=== PATIENT | female | born 1955 | race African-American/Black ===

== ENCOUNTER 2018-09-29 07:48 | Emergency (ER) | payer MEDICAID ==
[~2018-09-29] VITALS: Ht 162.6 cm; Wt 98.0 kg
[~2018-09-29 07:48] MED LIST: AMOXIL400 MG/52 PO; CEPHALEXIN250 MG/51 PO; CEPHALEXIN500 MG PO; CIPRO500 MG OR; COLCHICINE0.6 M2 PO; INDOCIN50 MG/CAP PO; KEFLEX500 MG PO; MEDDOSEPAK PO; NAPROSYN500 MG OR; NAPROSYN500 MG PO; NORCO1 TA1 PO; ONDANSETRON4 MG PO; PENICILLN VK500 M1 OR; PREDNISONE20 MG OR; TORADOL PO; ULTRAM50 M1 OR; ULTRAM50 M1 PO; ULTRAM50 MG OR; ULTRAM50 MG PO; ZOFRAN4 MG/TAB PO
[2018-09-29 07:53] VITALS: BP 150/94
[2018-09-29] MEDS ORDERED: MEDDOSEPAK PO (09:02)
[2018-09-29] MEDS ORDERED: TORADOL PO (09:02)
== END 2018-09-29 09:18 | disposition home or self-care (01) ==
LOC: ED 07:48
DX: S66.911A Strain of unspecified muscle, fascia and tendon at wrist and hand level, right hand, initial encounter (principal); I10 Essential (primary) hypertension; E11.9 Type 2 diabetes mellitus without complications; G45.9 Transient cerebral ischemic attack, unspecified; X58.XXXA Exposure to other specified factors, initial encounter; M25.531 Pain in right wrist

== ENCOUNTER 2018-11-13 18:17 | Observation (INO) | payer MEDICAID ==
[~2018-11-13] VITALS: Ht 170.2 cm; Wt 99.5 kg
--- NOTE | 2018-11-13 18:29 | NUR ---
PT DIRECTLY TO TX ROOM. PT STATES HAVING LEFT ANTERIOR NON RADIATING C/P THAT BEGAN AT 1400. PAIN AT 10/10- PT APPERAS COMFORTABLE ON STRETCHER, PT IS AOX4. DENIES ANY CON, N/V OR WEAKNESS.
--- NOTE | 2018-11-13 18:51 | NUR ---
REPORT GIVEN TO JAE SALES
[2018-11-13 18:53] LABS: HEMATOCRIT 38.7 % (37.0-47.0); HEMOGLOBIN 12.1 g/dl (12.0-16.0); IMMATURE GRANULOCYTES 0.3 % (0.0-5.0); MEAN CELL VOLUME 90.8 fL CALC (80.0-100.0); MEAN CORPUSCULAR HGB 28.4 pG CALC (26.0-32.0); MEAN CORPUSCULAR HGB CONC 31.3 g/L CALC (32.0-36.0); NEUT# 3.39 thou/uL (2.00-7.15); RED BLOOD COUNT 4.26 mill/uL (4.20-5.60); RED CELL DISTRI WIDTH 15.9 % (11.5-15.5)
--- NOTE | 2018-11-13 18:56 | NUR ---
ERP AT BEDSIDE.
[2018-11-13 19:21] LABS: ALBUMIN 4.2 g/dL (3.2-5.0); ALKALINE PHOSPHATASE 187 u/l (38-126); ANION GAP 15 (6-22 (CALC)); BILIRUBIN, TOTAL 0.5 mg/dL (0.0-1.4); BUN 35 mg/dL (8-23); BUN/CREATININE RATIO 17 (12-20 (CALC)); CARBON DIOXIDE 20 mmol/l (22-30); CHLORIDE 111 mmol/l (95-108); GFR 25 ML/MIN (>=60 (CALC)); GFR FOR AFR.AMER. 31 ML/MIN (>=60 (CALC)); POTASSIUM 4.4 mmol/l (3.5-5.1); SGOT/AST 24 u/l (9-36); SODIUM 141 mmol/l (137-146)
--- NOTE | 2018-11-13 21:17 | NUR ---
DR WESTBROOK AT BEDSIDE.
[2018-11-13] MEDS ORDERED: BLOOD PRESSURE MED (21:34)
--- NOTE | 2018-11-13 22:38 | NUR ---
REPORT TO [facility].
--- NOTE | 2018-11-13 22:45 | NUR ---
PT TO ICU WITH RN ON TELE. PT COND STABLE.
[2018-11-13 23:12] VITALS: BP 123/69
--- NOTE | 2018-11-14 00:45 | NUR ---
Patient admitted to unit as med-tele for chest pain. Cardiac enzymes are negative. Patient is alert and oriented. Breath sounds clear. Abdomen soft with active bowel sounds in al 4 quadrants. No S&S of pain. She is still having shap pain. It is not radiating down the arm and down the jaw. Will continue to monitor.
[2018-11-14 05:00] VITALS: BP 86/48
--- NOTE | 2018-11-14 05:23 | NUR ---
Patient resting in bed. No complaints of pain. V/S wnl. Breath sounds clear. Abdomen soft with active bowel sounds. No change in previous assessment. WIll continue to monitor patient progress.
[2018-11-14 06:32] VITALS: BP 132/71
--- NOTE | 2018-11-14 06:55 | NUR ---
RECVD REPORT AT START OF SHIFT.
[2018-11-14 08:00] VITALS: BP 128/70
--- NOTE | 2018-11-14 08:00 | NUR ---
PT C/O SHARP INTERMIT PAIN TO UPPER LEFT SIDE OF CHEST, WORSENS WITH MOVEMENT x1 DAY. DENIES TRAUMA. DENIES SOB. DENIES N/V/D. NEURO ABNORMALITIES. RODRIGUEZ. ABD SOFT/NONTENDER, ACTIVE BS. STRONG PULSES x4. NO EDEMA. BREATHING EVEN/UNLABORED, CLEAR LS.
--- NOTE | 2018-11-14 08:44 | NUR ---
DEMONSTRATED FOR PT HOW TO MANIPULATE HER BED, AFTER RESPONDING TO CALLBELL.
--- NOTE | 2018-11-14 09:43 | NUR ---
DR URRUTIA @BEDSIDE DISCUSSING PTS KIDNEYS.
--- NOTE | 2018-11-14 10:29 | NUR ---
AUX ASKED TO COME TO TRANSPORT PT TO U/S.
--- NOTE | 2018-11-14 10:41 | NUR ---
PT OFF UNIT TO U/S BY WC WITH AUXILLARY IN STABLE CONDITION.
--- NOTE | 2018-11-14 10:56 | NUR ---
PT RETURNED TO ICU 4 BY WC WITH AUX.
[2018-11-14 11:00] VITALS: BP 125/71
--- NOTE | 2018-11-14 11:31 | NUR ---
PT EDUCATED ON DC INSTRUCTIONS, INCLUDING WHEN TO RETURN TO ED & F/UP CARE. PT CHOOSE TO STAY FOR LUNCH. REQUEST WE CALL A CAB FOR HER WHEN SHE IS DONE. PT DID NOT NEED A WORK NOTE BC SHE DOES NOT WORK.
--- NOTE | 2018-11-14 11:47 | NUR ---
PT OUT THE DOOR IN , WITH AUX, IN STABLE CONDITION, AFTER FINISHING 100% OF LUNCH. REGISTRATION CALLED FOR A CAB FOR PT, PER HER REQUEST.
[2018-11-15] MEDS ORDERED: LOSARTAN POT50 MG PO (15:29)
== END 2018-11-14 11:47 | disposition home or self-care (01) ==
LOC: ED 18:17 → ED-I 20:26 → ED 21:21 → ICU 21:22
PROVIDERS: Emergency Medicine; ADMIT Internal Medicine; ATTEND Internal Medicine
DX: R07.89 Other chest pain (principal); E11.22 Type 2 diabetes mellitus with diabetic chronic kidney disease; I12.9 Hypertensive chronic kidney disease with stage 1 through stage 4 chronic kidney disease, or unspecified chronic kidney disease; N18.4 Chronic kidney disease, stage 4 (severe); N17.9 Acute kidney failure, unspecified; N20.0 Calculus of kidney; E87.2 Acidosis; E66.9 Obesity, unspecified; Z68.34 Body mass index [BMI] 34.0-34.9, adult; Z86.73 Personal history of transient ischemic attack (TIA), and cerebral infarction without residual deficits; Z90.5 Acquired absence of kidney

== ENCOUNTER 2018-11-15 13:12 | Emergency (ER) | payer MEDICAID ==
[~2018-11-15] VITALS: Ht 170.2 cm; Wt 100.0 kg
[~2018-11-15 13:12] MED LIST changes: +BLOOD PRESSURE MED
[2018-11-15 14:21] LABS: HEMOGLOBIN 12.2 g/dl (12.0-16.0); IMMATURE GRANULOCYTES 0.1 % (0.0-5.0); MEAN CELL VOLUME 90.7 fL CALC (80.0-100.0); MEAN CORPUSCULAR HGB 28.4 pG CALC (26.0-32.0); MEAN CORPUSCULAR HGB CONC 31.3 g/L CALC (32.0-36.0); NEUT# 3.8 thou/uL (2.00-7.15); RED BLOOD COUNT 4.3 mill/uL (4.20-5.60); RED CELL DISTRI WIDTH 15.9 % (11.5-15.5)
[2018-11-15 14:41] LABS: ANION GAP 15 (6-22 (CALC)); BUN 41 mg/dL (8-23); BUN/CREATININE RATIO 24 (12-20 (CALC)); CARBON DIOXIDE 18 mmol/l (22-30); CHLORIDE 113 mmol/l (95-108); CREATININE 1.7 mg/dL (0.5-1.0); GFR 31 ML/MIN (>=60 (CALC)); GFR FOR AFR.AMER. 37 ML/MIN (>=60 (CALC)); POTASSIUM 4.4 mmol/l (3.5-5.1); SODIUM 143 mmol/l (137-146)
[2018-11-15] MEDS ORDERED: LOSARTAN POT50 MG PO (15:29)
[2018-11-15 18:30] VITALS: BP 139/68
== END 2018-11-15 18:40 | disposition short-term general hospital (02) ==
LOC: ED 13:12
PROVIDERS: Family Medicine
DX: I20.0 Unstable angina (principal); I10 Essential (primary) hypertension
CPT/HCPCS: J1644

== ENCOUNTER 2018-12-27 22:09 | Emergency (ER) | payer MEDICAID ==
[~2018-12-27] VITALS: Ht 170.2 cm; Wt 97.7 kg
[~2018-12-27 22:09] MED LIST changes: +LOSARTAN POT50 MG PO
[2018-12-27 22:59] LABS: HEMATOCRIT 35.8 % (37.0-47.0); HEMOGLOBIN 11.1 g/dl (12.0-16.0); IMMATURE GRANULOCYTES 0.3 % (0.0-5.0); MEAN CELL VOLUME 89.5 fL CALC (80.0-100.0); MEAN CORPUSCULAR HGB 27.8 pG CALC (26.0-32.0); NEUT# 8.31 thou/uL (2.00-7.15); RED CELL DISTRI WIDTH 14.3 % (11.5-15.5)
[2018-12-27 23:20] LABS: ALBUMIN 4.5 g/dL (3.2-5.0); ALKALINE PHOSPHATASE 209 u/l (38-126); BILIRUBIN, TOTAL 0.5 mg/dL (0.0-1.4); BUN 18 mg/dL (8-23); BUN/CREATININE RATIO 10 (12-20 (CALC)); CHLORIDE 109 mmol/l (95-108); CREATININE 1.8 mg/dL (0.5-1.0); GFR 29 ML/MIN (>=60 (CALC)); GFR FOR AFR.AMER. 35 ML/MIN (>=60 (CALC)); POTASSIUM 4.3 mmol/l (3.5-5.1); SGOT/AST 18 u/l (9-36); SODIUM 140 mmol/l (137-146); TOTAL PROTEIN 9.2 g/dL (6.3-8.2)
[2018-12-27 23:23] LABS: ANION GAP 13 (6-22 (CALC)); CARBON DIOXIDE 22 mmol/l (22-30)
[2018-12-27 23:28] LABS: MYOGLOBIN 27 ng/mL (0 - 62)
[2018-12-27 23:51] LABS: TSH, 3RD GENERATION 2.13 uIU/mL (0.47 - 4.68)
[2018-12-28 00:25] LABS: URINE BILIRUBIN - DIPSTICK NEGATIVE (NEGATIVE); URINE BLOOD DIPSTICK LARGE (NEGATIVE); URINE COLOR YELLOW; URINE GLUCOSE - DIPSTICK NEGATIVE (NEGATIVE); URINE KETONE NEGATIVE (NEGATIVE); URINE LEUK ESTERASE LARGE (NEGATIVE); URINE NITRITE - DIPSTICK NEGATIVE (Negative); URINE PH 6.5 (4.5-8.0); URINE PROTEIN - DIPSTICK 100 mg/dL (NEG-TRACE); URINE UROBILINOGEN - DIPSTICK 0.2 E.U./dL (0.2)
[2018-12-28 00:51] LABS: URINE RBC 25-50 RBC/hpf (0-5); URINE SQUAMOUS EPITHELIAL CELL FEW EPI/hpf (0-FEW); URINE TRICHOMONAS RARE hpf; URINE WBC 50-100 WBC/hpf (0-5)
[2018-12-28] MEDS ORDERED: TRAMADOL HCL50 MG PO (01:06)
[2018-12-28 01:35] VITALS: BP 104/62
== END 2018-12-28 01:35 | disposition home or self-care (01) ==
LOC: ED 22:09
PROVIDERS: Family Medicine
DX: R53.1 Weakness (principal); M25.571 Pain in right ankle and joints of right foot

== ENCOUNTER 2019-09-02 | Emergency (ER) | payer MEDICAID ==
[~2019-09-02] MED LIST changes: +TRAMADOL HCL50 MG PO
== END 2019-09-02 16:59 | disposition home or self-care (01) ==
DX: H40.9 Unspecified glaucoma (principal); H43.393 Other vitreous opacities, bilateral; E11.9 Type 2 diabetes mellitus without complications; E03.9 Hypothyroidism, unspecified; I10 Essential (primary) hypertension

== ENCOUNTER 2021-03-03 03:52 | Observation (INO) | payer MEDICAID ==
[~2021-03-03] VITALS: Ht 162.6 cm; Wt 82.2 kg
--- NOTE | 2021-03-03 04:40 | NUR ---
IV ACCESS OBTAINED AND LAB WORK DRAWN INCLUDING FIRST SET OF BC's PT MEDICATED FOR PAIN AND NAUSEA ORDERED, RADIOLOGY AT BEDSIDE FOR CXR AND CURRENTLY TO GO TO RADIOLOGY FOR CT SCAN.
[2021-03-03 05:02] LABS: HEMATOCRIT 34.1 % (37.0-47.0); HEMOGLOBIN 10.9 g/dl (12.0-16.0); IMMATURE GRANULOCYTES 0.2 % (0.0-5.0); MEAN CELL VOLUME 86.3 fL CALC (80.0-100.0); MEAN CORPUSCULAR HGB 27.6 pG CALC (26.0-32.0); RED BLOOD COUNT 3.95 mill/uL (4.20-5.60); RED CELL DISTRI WIDTH 16.1 % (11.5-15.5)
[2021-03-03 05:13] LABS: ALKALINE PHOSPHATASE 120 u/l (38-126); AMYLASE 96 u/l (30-110); BUN 14 mg/dL (8-23); BUN/CREATININE RATIO 11 (12-20 (CALC)); CHLORIDE 107 mmol/l (95-108); CREATININE 1.2 mg/dL (0.5-1.0); ETHYL ALCOHOL 0 mg/dl (0-30); GFR 45 ML/MIN (>=60 (CALC)); GFR FOR AFR.AMER. 55 ML/MIN (>=60 (CALC)); LIPASE 170 u/l (23-300); SGOT/AST 17 u/l (9-36); SODIUM 143 mmol/l (137-146)
[2021-03-03 05:14] LABS: ALBUMIN 3.1 g/dL (3.2-5.0); ANION GAP 11 (6-22 (CALC)); BILIRUBIN, TOTAL 0.1 mg/dL (0.0-1.4); CARBON DIOXIDE 28 mmol/l (22-30); POTASSIUM 2.5 mmol/l (3.5-5.1); TOTAL PROTEIN 7.2 g/dL (6.3-8.2)
[2021-03-03 05:18] LABS: ACT PARTIAL THROMBO TIME 25.9 SECONDS (20.0-32.5); INTERNATIONAL NORMALIZED RATIO 1.1 RATIO (0.7-1.3); PROTHROMBIN TIME 11.6 SECONDS (9.0-12.5)
[2021-03-03 06:00] LABS: URINE BILIRUBIN - DIPSTICK NEGATIVE (NEGATIVE); URINE BLOOD DIPSTICK MODERATE (NEGATIVE); URINE COLOR YELLOW; URINE GLUCOSE - DIPSTICK NEGATIVE (NEGATIVE); URINE PH 6.5 (4.5-8.0); URINE PROTEIN - DIPSTICK TRACE mg/dL (NEG-TRACE); URINE SPECIFIC GRAVITY 1.015; URINE UROBILINOGEN - DIPSTICK 0.2 E.U./dL (0.2)
[2021-03-03 06:06] LABS: URINE LEUK ESTERASE LARGE (NEGATIVE); URINE NITRITE - DIPSTICK NEGATIVE (Negative)
[2021-03-03 06:07] LABS: URINE KETONE NEGATIVE (NEGATIVE)
[2021-03-03 06:09] LABS: URINE EPITHELIAL CELLS MODERATE EPI/hpf (0-FEW); URINE WBC 20-50 WBC/hpf (0-5)
[2021-03-03 06:10] LABS: URINE BACTERIA MODERATE hpf
--- NOTE | 2021-03-03 06:56 | NUR ---
Recieved for care,stable. call castellanos in reach
--- NOTE | 2021-03-03 07:32 | NUR ---
PATIENT TOOK MEDICATIONS WITH EASE AND PUFFS OF INHALER. DRINKING FORMULA THROUGH BOTTLE.
--- NOTE | 2021-03-03 08:30 | NUR ---
WARM BLANKET GIVEN. PATIENT RESTING. RESP EASY
--- NOTE | 2021-03-03 09:23 | NUR ---
QUIET ROOM. CALL VILLA IN REACH
--- NOTE | 2021-03-03 10:10 | NUR ---
PATIENT AWAITING ADMISSION. RESTING QUIETLY.
--- NOTE | 2021-03-03 12:46 | NUR ---
REPORT TO MUNDO SALES ON M/S
--- NOTE | 2021-03-03 12:58 | NUR ---
TRANSFERRED VIA STRETCHER TO [facility]. IV SITE INTAC
[2021-03-03 13:10] VITALS: BP 128/70
[2021-03-03 15:00] VITALS: BP 115/73
--- NOTE | 2021-03-03 15:20 | NUR ---
REPORT RECEIVED FROM SALVADOR IN ED, PT ARRIVED ON UNIT VIA STRETCHER @ 1300 AND TRANSFERRED TO BED BY 3 STAFF MEMBERS. ALERT AND ORIENTED X 3, DENIES PAIN, IV ABT INFUSING TO # 22 IV CATHETER IN RAC, TELE MONITOR IN PLACE, ORIENTED TO ROOM AND CALL VILLA, SETTLED, WILL CONTINUE TO MONITOR. DR MATT ROUNDED AND DISCUSSED PLAN OF CARE WITH PT WHO STATED UNDERSTANDING.
[2021-03-03 19:09] VITALS: BP 107/61
--- NOTE | 2021-03-03 20:03 | NUR ---
PHYSICAL ASSESMENT COMPLETE. PT CURRENTLY DENIES PAIN OR DISCOMFORT. SCHEDULED MEDICATIONS AND PRN MEDICATION ADMINISTERED, SEE E-MAR. PT DENIES ANY NEEDS AT THIS TIME. PLAN OF CARE REVIEWED, PT DENIES QUESTIONS, VERBALIZES UNDERSTANDING. ITEMS WITHIN REACH, BED LOCKED IN LOW POSITION W/ BEDRAILS UP X2. CALL VILLA WITHIN REACH, AGREES TO CALL PRN.
--- NOTE | 2021-03-03 23:43 | NUR ---
PT LAYING IN BED WITH EYES CLOSED, APPEARS TO BE SLEEPING, APPEARS COMFORTABLE AND IN NO DISTRESS. RESPIRATIONS REGULAR AND UNLABORED. ITEMS REMAIN WITHIN REACH, CALL VILLA REMAINS WITHIN REACH. BED REMAINS LOCKED AND IN LOW POSITION WITH BEDRAILS UP X2. WILL CONTINUE TO MONITOR.
[2021-03-04 00:47] VITALS: BP 91/59
--- NOTE | 2021-03-04 04:00 | NUR ---
PT RESTING IN BED, NO SIGNS OF DISTRESS NOTED, RESP EVEN AND UNLABORED. PT VOICES NO NEEDS OR COMPLAINTS AT THIS TIME. CALL LIGHT IN REACH, CONTINUE TO MONITOR.
[2021-03-04 04:40] VITALS: BP 108/66
[2021-03-04 05:02] LABS: HEMATOCRIT 31.3 % (37.0-47.0); HEMOGLOBIN 9.8 g/dl (12.0-16.0); MEAN CELL VOLUME 87.7 fL CALC (80.0-100.0); MEAN CORPUSCULAR HGB 27.5 pG CALC (26.0-32.0); MEAN CORPUSCULAR HGB CONC 31.3 g/dL CAL (32.0-36.0); RED BLOOD COUNT 3.57 mill/uL (4.20-5.60); RED CELL DISTRI WIDTH 16.1 % (11.5-15.5)
[2021-03-04 05:16] LABS: CREATININE 1.2 mg/dL (0.5-1.0); MAGNESIUM 1.6 mg/dL (1.6-2.3); POTASSIUM 3.3 mmol/l (3.5-5.1)
--- NOTE | 2021-03-04 07:00 | NUR ---
SHIFT CHANGE REPORT, PT AWAKE ALERT AND ORIENTED, DENIES PAIN/DISCOMFORT, IVF INFUSING, TELE MONITOR IN PLACE, CALL VILLA IN REACH AND BED LOCKED IN LOWEST POSITION.
--- NOTE | 2021-03-04 07:10 | NUR ---
Patient is screened for PT intervention. No needs are identified on chart review but patient may benefit from outpatient follow up as she has history of UE amputation and CVA
[2021-03-04 07:36] VITALS: BP 106/70
--- NOTE | 2021-03-04 08:19 | NUR ---
PT JUST CALLED FOR NURSE REPORTING HER BACK IS ITCHING REALLY BAD, ON ASSESSMENT NO REDNESS OR RASH WAS OBSERVED, NURSE GAVE BACK MESSAGE WITH MOISTURIZER AND DISCOMFORT WAS RELIEVED PT STATED.
[2021-03-04 11:08] VITALS: BP 104/60
--- NOTE | 2021-03-04 12:25 | NUR ---
REPORT RECEIVED FROM MÓNICA VASQUEZ
--- NOTE | 2021-03-04 15:30 | NUR ---
PT RESTING IN SEMI FOWLERS POSITION;RESPIRATIONS EVEN AND UNLABORED;PT DENIES ANY CURRENT PAIN OR NEEDS;IV SITE PATENT INFUSING FLUIDS PER ORDER;TELE MONITORING IN PLACE;PT ENCOURAGED TO CALL FOR ASSISTANCE IF NEEDED;FALL PRECAUTIONS IN PLACE WITH CALL LIGHT IN REACH;WILL CONTINUE TO MONITOR
[2021-03-04 16:00] VITALS: BP 111/72
[2021-03-04 19:28] VITALS: BP 110/65
--- NOTE | 2021-03-05 01:42 | NUR ---
PT LAYING IN BED WITH EYES CLOSED, APPEARS TO BE SLEEPING, APPEARS COMFORTABLE AND IN NO DISTRESS. RESPIRATIONS REGULAR AND UNLABORED. PURWICK IN PLACE. ITEMS REMAIN WITHIN REACH, CALL VILLA REMAINS WITHIN REACH. BED REMAINS LOCKED AND IN LOW POSITION WITH BEDRAILS UP X2. WILL CONTINUE TO MONITOR.
--- NOTE | 2021-03-05 02:38 | NUR ---
R-AC IV site discontinued, cath intact. No edema , no redness, voices no discomfort. Peripheral IV started. IV access obtained with #22 AutoGuard at Right Forearm with 1 IV stick attempts. Flushes easily with good blood return.
[2021-03-05 04:51] LABS: HEMATOCRIT 28.3 % (37.0-47.0); IMMATURE GRANULOCYTES 0.2 % (0.0-5.0); MEAN CELL VOLUME 87.9 fL CALC (80.0-100.0); MEAN CORPUSCULAR HGB CONC 31.8 g/dL CAL (32.0-36.0); NEUT# 2.72 thou/uL (2.00-7.15); RED BLOOD COUNT 3.22 mill/uL (4.20-5.60); RED CELL DISTRI WIDTH 16.3 % (11.5-15.5)
[2021-03-05 05:05] VITALS: BP 126/76; BP 98/62
[2021-03-05 05:05] LABS: ALKALINE PHOSPHATASE 87 u/l (38-126); ANION GAP 9 (6-22 (CALC)); BUN 12 mg/dL (8-23); BUN/CREATININE RATIO 10 (12-20 (CALC)); CARBON DIOXIDE 24 mmol/l (22-30); CHLORIDE 114 mmol/l (95-108); CREATININE 1.1 mg/dL (0.5-1.0); GFR 50 ML/MIN (>=60 (CALC)); GFR FOR AFR.AMER. > 60 ML/MIN (>=60 (CALC)); POTASSIUM 3.4 mmol/l (3.5-5.1); SGOT/AST 16 u/l (9-36); SODIUM 143 mmol/l (137-146)
[2021-03-05 05:07] LABS: ALBUMIN 2.2 g/dL (3.2-5.0); BILIRUBIN, TOTAL 0.2 mg/dL (0.0-1.4); TOTAL PROTEIN 5.5 g/dL (6.3-8.2)
--- NOTE | 2021-03-05 05:38 | NUR ---
PT FELT A SKIN TEAR ABOVE THE FOLD OF HER BUTTOCKS. TEAR IS APPROXIMATELY 10 CM LONG. (REFER TO PICTURE IN CHART) PT STATES IT STINGS WHEN WASHED.
--- NOTE | 2021-03-05 07:01 | NUR ---
REPORT FROM SONA SALES. ASSUMED PT CARE.
[2021-03-05 07:37] VITALS: BP 122/60
--- NOTE | 2021-03-05 07:45 | NUR ---
PRELIMINARY CULTURE RESULTS CALLED TO KATARZYNA WARREN ON 03/04/21 @0800 NO NEW ORDERS
--- NOTE | 2021-03-05 10:10 | NUR ---
PHYSICIAN AT BEDSIDE TO DISCUSS POC.
[2021-03-05 10:50] VITALS: BP 115/61
--- NOTE | 2021-03-05 10:56 | NUR ---
PT C/O NAUSEA, EDUCATED ON MEDICATION SCHEDULE TIME. SALTINE CRACKERS PROVIDED. WILL CONTINUE TO MONITOR.
[2021-03-05] MEDS ORDERED: AUGMENTIN400 MG/51 PO (11:37)
--- NOTE | 2021-03-05 12:47 | NUR ---
PT REFUSED TO EAT LUNCH, PT STATES SHE DOES NOT HAVE AN APPETITE. DENIES ANY NAUSEA AT THIS TIME. ALTERNATIVE FOOD OFFERED PT CONTINUES TO REFUSE.
[2021-03-05 15:00] VITALS: BP 120/62
--- NOTE | 2021-03-05 15:44 | NUR ---
DISCHARGE INSTRUCTIONS GIVEN AND EXPLAINED AT THIS TIME. PENDING HELP AID FROM MEDICAL TRANSPORT TO HOME.
--- NOTE | 2021-03-05 17:30 | NUR ---
IV site discontinued, cath intact. No edema , no redness, voices no discomfort. Discharge instructions given. Patient verbalizes understanding of same. Discharged in stable condition via Medical Transport to Home with family. All belongings sent with pt.
== END 2021-03-05 17:30 | disposition home or self-care (01) ==
LOC: ED 03:52 → ED-I 07:05 → ED 08:56 → MS2 08:57
PROVIDERS: Nurse Practitioner; ADMIT Internal Medicine; ATTEND Internal Medicine
DX: N39.0 Urinary tract infection, site not specified (principal); K80.20 Calculus of gallbladder without cholecystitis without obstruction; E87.6 Hypokalemia; I10 Essential (primary) hypertension; E11.9 Type 2 diabetes mellitus without complications; N20.0 Calculus of kidney; M10.9 Gout, unspecified; E03.9 Hypothyroidism, unspecified; R13.10 Dysphagia, unspecified; B95.2 Enterococcus as the cause of diseases classified elsewhere; Z86.73 Personal history of transient ischemic attack (TIA), and cerebral infarction without residual deficits; Z90.5 Acquired absence of kidney; Z89.202 Acquired absence of left upper limb, unspecified level; Z20.822 Contact with and (suspected) exposure to COVID-19
CPT/HCPCS: G0378; J1650; J3475

== ENCOUNTER 2021-03-10 09:52 | Inpatient (IN) | payer MEDICAID ==
[~2021-03-10] VITALS: Ht 162.6 cm; Wt 80.7 kg
[~2021-03-10 09:52] MED LIST changes: +AUGMENTIN400 MG/51 PO
[2021-03-10 10:48] LABS: HEMOGLOBIN 10.5 g/dl (12.0-16.0); IMMATURE GRANULOCYTES 0.3 % (0.0-5.0); MEAN CELL VOLUME 86.8 fL CALC (80.0-100.0); MEAN CORPUSCULAR HGB 27.6 pG CALC (26.0-32.0); MEAN CORPUSCULAR HGB CONC 31.8 g/dL CAL (32.0-36.0); NEUT# 3.99 thou/uL (2.00-7.15); RED BLOOD COUNT 3.8 mill/uL (4.20-5.60); RED CELL DISTRI WIDTH 16.8 % (11.5-15.5)
[2021-03-10 12:06] LABS: ALKALINE PHOSPHATASE 107 u/l (38-126); AMYLASE 71 u/l (30-110); ANION GAP 13 (6-22 (CALC)); BUN 7 mg/dL (8-23); BUN/CREATININE RATIO 6 (12-20 (CALC)); CARBON DIOXIDE 23 mmol/l (22-30); CHLORIDE 111 mmol/l (95-108); CREATININE 1.1 mg/dL (0.5-1.0); GFR 50 ML/MIN (>=60 (CALC)); GFR FOR AFR.AMER. > 60 ML/MIN (>=60 (CALC)); LIPASE 63 u/l (23-300); SGOT/AST 19 u/l (9-36); SODIUM 144 mmol/l (137-146)
[2021-03-10 12:28] LABS: ALBUMIN 2.9 g/dL (3.2-5.0); BILIRUBIN, TOTAL 0.3 mg/dL (0.0-1.4)
[2021-03-10 13:20] LABS: URINE BILIRUBIN - DIPSTICK NEGATIVE (NEGATIVE); URINE BLOOD DIPSTICK MODERATE (NEGATIVE); URINE COLOR YELLOW; URINE GLUCOSE - DIPSTICK NEGATIVE (NEGATIVE); URINE KETONE NEGATIVE (NEGATIVE); URINE PROTEIN - DIPSTICK NEGATIVE (NEG-TRACE); URINE SPECIFIC GRAVITY 1.015; URINE UROBILINOGEN - DIPSTICK 0.2 E.U./dL (0.2)
[2021-03-10 13:27] LABS: URINE LEUK ESTERASE LARGE (NEGATIVE); URINE NITRITE - DIPSTICK NEGATIVE (Negative)
[2021-03-10 13:34] LABS: URINE BACTERIA FEW hpf; URINE SQUAMOUS EPITHELIAL CELL FEW EPI/hpf (0-FEW); URINE WBC >100 WBC/hpf (0-5)
[2021-03-10 21:30] VITALS: BP 144/87
[2021-03-10 23:30] VITALS: BP 134/59
[2021-03-11 04:24] VITALS: BP 119/53
[2021-03-11 08:34] VITALS: BP 121/56
[2021-03-11 09:57] LABS: IMMATURE GRANULOCYTES 0.2 % (0.0-5.0); MEAN CELL VOLUME 87.5 fL CALC (80.0-100.0); NEUT# 3.35 thou/uL (2.00-7.15); RED BLOOD COUNT 3.04 mill/uL (4.20-5.60); RED CELL DISTRI WIDTH 16.6 % (11.5-15.5)
[2021-03-11 10:10] LABS: HEMATOCRIT 26.6 % (37.0-47.0); HEMOGLOBIN 8.5 g/dl (12.0-16.0)
[2021-03-11 10:29] LABS: ALBUMIN 2.5 g/dL (3.2-5.0); ALKALINE PHOSPHATASE 91 u/l (38-126); ANION GAP 9 (6-22 (CALC)); BUN 8 mg/dL (8-23); BUN/CREATININE RATIO 7 (12-20 (CALC)); CARBON DIOXIDE 24 mmol/l (22-30); CHLORIDE 113 mmol/l (95-108); CREATININE 1.2 mg/dL (0.5-1.0); GFR 45 ML/MIN (>=60 (CALC)); GFR FOR AFR.AMER. 55 ML/MIN (>=60 (CALC)); MAGNESIUM 1.4 mg/dL (1.6-2.3); POTASSIUM 2.5 mmol/l (3.5-5.1); SGOT/AST 16 u/l (9-36); SODIUM 144 mmol/l (137-146); TOTAL PROTEIN 6.2 g/dL (6.3-8.2)
[2021-03-11 10:30] LABS: BILIRUBIN, TOTAL 0.1 mg/dL (0.0-1.4)
[2021-03-11 10:55] VITALS: BP 120/62
[2021-03-11 15:20] VITALS: BP 126/75
[2021-03-11 19:04] VITALS: BP 117/66
[2021-03-12] VITALS (7 sets, daily range): BP systolic 117–144; BP diastolic 65–80
[2021-03-12 05:09] LABS: HEMATOCRIT 28.5 % (37.0-47.0); MEAN CELL VOLUME 87.7 fL CALC (80.0-100.0); MEAN CORPUSCULAR HGB 27.7 pG CALC (26.0-32.0); MEAN CORPUSCULAR HGB CONC 31.6 g/dL CAL (32.0-36.0); RED BLOOD COUNT 3.25 mill/uL (4.20-5.60)
[2021-03-12 05:30] LABS: CREATININE 1.2 mg/dL (0.5-1.0); POTASSIUM 2.9 mmol/l (3.5-5.1)
[2021-03-12 05:33] LABS: MAGNESIUM 2.4 mg/dL (1.6-2.3)
[2021-03-13 04:00] VITALS: BP 118/72
[2021-03-13 05:31] LABS: HEMATOCRIT 28.1 % (37.0-47.0); MEAN CELL VOLUME 88.4 fL CALC (80.0-100.0); MEAN CORPUSCULAR HGB 28.3 pG CALC (26.0-32.0); RED BLOOD COUNT 3.18 mill/uL (4.20-5.60); RED CELL DISTRI WIDTH 17.2 % (11.5-15.5)
[2021-03-13 05:52] LABS: CREATININE 1.2 mg/dL (0.5-1.0)
[2021-03-13 07:54] VITALS: BP 134/76
[2021-03-13 10:57] VITALS: BP 140/78
[2021-03-13 15:18] VITALS: BP 137/72
[2021-03-13 18:39] VITALS: BP 142/76
[2021-03-13 23:16] VITALS: BP 133/79
[2021-03-14 04:00] VITALS: BP 129/67
[2021-03-14 05:17] LABS: HEMOGLOBIN 8.7 g/dl (12.0-16.0); MEAN CELL VOLUME 86.8 fL CALC (80.0-100.0); MEAN CORPUSCULAR HGB CONC 32.2 g/dL CAL (32.0-36.0); RED BLOOD COUNT 3.11 mill/uL (4.20-5.60); RED CELL DISTRI WIDTH 17.1 % (11.5-15.5)
[2021-03-14 05:28] LABS: ANION GAP 10 (6-22 (CALC)); BUN 3 mg/dL (8-23); BUN/CREATININE RATIO 3 (12-20 (CALC)); CARBON DIOXIDE 21 mmol/l (22-30); CHLORIDE 117 mmol/l (95-108); CREATININE 1.1 mg/dL (0.5-1.0); GFR 50 ML/MIN (>=60 (CALC)); GFR FOR AFR.AMER. > 60 ML/MIN (>=60 (CALC)); MAGNESIUM 1.8 mg/dL (1.6-2.3); SODIUM 145 mmol/l (137-146)
[2021-03-14 08:14] VITALS: BP 119/67
[2021-03-14 10:53] VITALS: BP 134/71
[2021-03-14 15:03] VITALS: BP 136/81
[2021-03-14 19:00] VITALS: BP 155/79
[2021-03-14 23:30] VITALS: BP 124/69
[2021-03-15] VITALS (11 sets, daily range): BP systolic 122–178; BP diastolic 63–93
[2021-03-15 05:27] LABS: HEMATOCRIT 26.8 % (37.0-47.0); HEMOGLOBIN 8.7 g/dl (12.0-16.0); MEAN CELL VOLUME 87.6 fL CALC (80.0-100.0); MEAN CORPUSCULAR HGB 28.4 pG CALC (26.0-32.0); MEAN CORPUSCULAR HGB CONC 32.5 g/dL CAL (32.0-36.0); RED BLOOD COUNT 3.06 mill/uL (4.20-5.60); RED CELL DISTRI WIDTH 17.7 % (11.5-15.5)
[2021-03-15 05:40] LABS: ANION GAP 9 (6-22 (CALC)); BUN 3 mg/dL (8-23); BUN/CREATININE RATIO 3 (12-20 (CALC)); CARBON DIOXIDE 21 mmol/l (22-30); CHLORIDE 119 mmol/l (95-108); CREATININE 1.1 mg/dL (0.5-1.0); GFR 50 ML/MIN (>=60 (CALC)); GFR FOR AFR.AMER. > 60 ML/MIN (>=60 (CALC)); MAGNESIUM 1.6 mg/dL (1.6-2.3); POTASSIUM 3.1 mmol/l (3.5-5.1); SODIUM 146 mmol/l (137-146)
[2021-03-16 03:54] VITALS: BP 131/76
[2021-03-16 05:10] LABS: MEAN CELL VOLUME 88.1 fL CALC (80.0-100.0); MEAN CORPUSCULAR HGB 28.3 pG CALC (26.0-32.0); MEAN CORPUSCULAR HGB CONC 32.1 g/dL CAL (32.0-36.0); RED BLOOD COUNT 3.18 mill/uL (4.20-5.60); RED CELL DISTRI WIDTH 17.9 % (11.5-15.5)
[2021-03-16 05:25] LABS: ANION GAP 8 (6-22 (CALC)); BUN 2 mg/dL (8-23); BUN/CREATININE RATIO 2 (12-20 (CALC)); CARBON DIOXIDE 23 mmol/l (22-30); CHLORIDE 119 mmol/l (95-108); CREATININE 1.1 mg/dL (0.5-1.0); GFR 50 ML/MIN (>=60 (CALC)); GFR FOR AFR.AMER. > 60 ML/MIN (>=60 (CALC)); MAGNESIUM 1.5 mg/dL (1.6-2.3); POTASSIUM 3.2 mmol/l (3.5-5.1); SODIUM 146 mmol/l (137-146)
[2021-03-16 09:11] VITALS: BP 139/70
[2021-03-16 11:16] VITALS: BP 137/72
[2021-03-16 14:40] VITALS: BP 135/76
[2021-03-16 19:00] VITALS: BP 160/96
[2021-03-17] VITALS: BP 148/71
[2021-03-17 04:00] VITALS: BP 129/80
[2021-03-17 06:25] LABS: HEMATOCRIT 28.2 % (37.0-47.0); HEMOGLOBIN 9.1 g/dl (12.0-16.0); MEAN CELL VOLUME 86.2 fL CALC (80.0-100.0); MEAN CORPUSCULAR HGB 27.8 pG CALC (26.0-32.0); MEAN CORPUSCULAR HGB CONC 32.3 g/dL CAL (32.0-36.0); RED BLOOD COUNT 3.27 mill/uL (4.20-5.60); RED CELL DISTRI WIDTH 17.8 % (11.5-15.5)
[2021-03-17 06:35] LABS: ANION GAP 8 (6-22 (CALC)); BUN 2 mg/dL (8-23); BUN/CREATININE RATIO 2 (12-20 (CALC)); CARBON DIOXIDE 22 mmol/l (22-30); CHLORIDE 118 mmol/l (95-108); GFR 56 ML/MIN (>=60 (CALC)); GFR FOR AFR.AMER. > 60 ML/MIN (>=60 (CALC)); POTASSIUM 3.5 mmol/l (3.5-5.1); SODIUM 145 mmol/l (137-146)
[2021-03-17 08:56] VITALS: BP 147/84
[2021-03-17 10:46] VITALS: BP 140/73
[2021-03-17 15:19] VITALS: BP 135/80
[2021-03-17 18:52] VITALS: BP 131/78
[2021-03-18] VITALS: BP 126/63
[2021-03-18 04:20] VITALS: BP 126/75
[2021-03-18 05:51] LABS: HEMATOCRIT 27.2 % (37.0-47.0); HEMOGLOBIN 8.9 g/dl (12.0-16.0); MEAN CELL VOLUME 85.8 fL CALC (80.0-100.0); MEAN CORPUSCULAR HGB 28.1 pG CALC (26.0-32.0); MEAN CORPUSCULAR HGB CONC 32.7 g/dL CAL (32.0-36.0); RED BLOOD COUNT 3.17 mill/uL (4.20-5.60); RED CELL DISTRI WIDTH 17.7 % (11.5-15.5)
[2021-03-18 06:02] LABS: ANION GAP 9 (6-22 (CALC)); BUN 2 mg/dL (8-23); BUN/CREATININE RATIO 2 (12-20 (CALC)); CARBON DIOXIDE 22 mmol/l (22-30); CHLORIDE 116 mmol/l (95-108); CREATININE 1.1 mg/dL (0.5-1.0); GFR 50 ML/MIN (>=60 (CALC)); GFR FOR AFR.AMER. > 60 ML/MIN (>=60 (CALC)); MAGNESIUM 1.7 mg/dL (1.6-2.3); POTASSIUM 3.3 mmol/l (3.5-5.1); SODIUM 144 mmol/l (137-146)
[2021-03-18 09:45] VITALS: BP 141/78
[2021-03-18 15:59] VITALS: BP 139/80
[2021-03-18 19:00] VITALS: BP 138/74
[2021-03-19 04:00] VITALS: BP 129/70
[2021-03-19 05:26] LABS: HEMATOCRIT 27.2 % (37.0-47.0); HEMOGLOBIN 8.7 g/dl (12.0-16.0); MEAN CELL VOLUME 86.6 fL CALC (80.0-100.0); MEAN CORPUSCULAR HGB 27.7 pG CALC (26.0-32.0); RED BLOOD COUNT 3.14 mill/uL (4.20-5.60); RED CELL DISTRI WIDTH 18.1 % (11.5-15.5)
[2021-03-19 05:56] LABS: ANION GAP 8 (6-22 (CALC)); BUN 4 mg/dL (8-23); BUN/CREATININE RATIO 4 (12-20 (CALC)); CARBON DIOXIDE 23 mmol/l (22-30); CHLORIDE 116 mmol/l (95-108); GFR 56 ML/MIN (>=60 (CALC)); GFR FOR AFR.AMER. > 60 ML/MIN (>=60 (CALC)); POTASSIUM 2.9 mmol/l (3.5-5.1); SODIUM 144 mmol/l (137-146)
[2021-03-19 07:15] VITALS: BP 115/71
[2021-03-19 11:14] VITALS: BP 137/80
[2021-03-19 15:28] VITALS: BP 119/67
[2021-03-19 18:45] VITALS: BP 126/68
[2021-03-19 23:17] VITALS: BP 101/63
[2021-03-20 03:36] VITALS: BP 129/71
[2021-03-20 06:17] LABS: HEMATOCRIT 26.8 % (37.0-47.0); HEMOGLOBIN 8.6 g/dl (12.0-16.0); MEAN CELL VOLUME 85.9 fL CALC (80.0-100.0); MEAN CORPUSCULAR HGB 27.6 pG CALC (26.0-32.0); MEAN CORPUSCULAR HGB CONC 32.1 g/dL CAL (32.0-36.0); RED BLOOD COUNT 3.12 mill/uL (4.20-5.60); RED CELL DISTRI WIDTH 17.8 % (11.5-15.5)
[2021-03-20 06:39] LABS: ANION GAP 8 (6-22 (CALC)); BUN 5 mg/dL (8-23); BUN/CREATININE RATIO 5 (12-20 (CALC)); CARBON DIOXIDE 25 mmol/l (22-30); CHLORIDE 112 mmol/l (95-108); CREATININE 1.1 mg/dL (0.5-1.0); GFR 50 ML/MIN (>=60 (CALC)); GFR FOR AFR.AMER. > 60 ML/MIN (>=60 (CALC)); POTASSIUM 2.9 mmol/l (3.5-5.1); SODIUM 141 mmol/l (137-146)
[2021-03-20 07:53] VITALS: BP 116/68
[2021-03-20 10:30] VITALS: BP 127/67
[2021-03-20 15:00] VITALS: BP 132/71
[2021-03-20 18:48] VITALS: BP 127/70
[2021-03-20 23:33] VITALS: BP 108/68
[2021-03-21 03:32] VITALS: BP 108/69
[2021-03-21 05:43] LABS: HEMATOCRIT 27.5 % (37.0-47.0); HEMOGLOBIN 8.9 g/dl (12.0-16.0); MEAN CELL VOLUME 85.4 fL CALC (80.0-100.0); MEAN CORPUSCULAR HGB 27.6 pG CALC (26.0-32.0); MEAN CORPUSCULAR HGB CONC 32.4 g/dL CAL (32.0-36.0); RED BLOOD COUNT 3.22 mill/uL (4.20-5.60); RED CELL DISTRI WIDTH 18.3 % (11.5-15.5)
[2021-03-21 06:06] LABS: ALBUMIN 2.4 g/dL (3.2-5.0); ALKALINE PHOSPHATASE 90 u/l (38-126); ANION GAP 9 (6-22 (CALC)); BUN 6 mg/dL (8-23); BUN/CREATININE RATIO 6 (12-20 (CALC)); CARBON DIOXIDE 22 mmol/l (22-30); CHLORIDE 114 mmol/l (95-108); GFR 56 ML/MIN (>=60 (CALC)); GFR FOR AFR.AMER. > 60 ML/MIN (>=60 (CALC)); POTASSIUM 3.2 mmol/l (3.5-5.1); SGOT/AST 13 u/l (9-36); SODIUM 142 mmol/l (137-146)
[2021-03-21 06:12] LABS: BILIRUBIN, TOTAL 0.2 mg/dL (0.0-1.4)
[2021-03-21 08:08] VITALS: BP 133/75
[2021-03-21 10:26] VITALS: BP 130/73
[2021-03-21 15:09] VITALS: BP 130/72
[2021-03-21 19:50] VITALS: BP 129/72
[2021-03-21 23:40] VITALS: BP 129/72
[2021-03-22 03:37] VITALS: BP 130/74
[2021-03-22 05:45] LABS: HEMATOCRIT 28.3 % (37.0-47.0); HEMOGLOBIN 9.2 g/dl (12.0-16.0); MEAN CELL VOLUME 85.2 fL CALC (80.0-100.0); MEAN CORPUSCULAR HGB 27.7 pG CALC (26.0-32.0); MEAN CORPUSCULAR HGB CONC 32.5 g/dL CAL (32.0-36.0); RED BLOOD COUNT 3.32 mill/uL (4.20-5.60); RED CELL DISTRI WIDTH 18.2 % (11.5-15.5)
[2021-03-22 05:52] LABS: ALBUMIN 2.4 g/dL (3.2-5.0); ALKALINE PHOSPHATASE 86 u/l (38-126); ANION GAP 10 (6-22 (CALC)); BILIRUBIN, TOTAL 0.2 mg/dL (0.0-1.4); BUN 6 mg/dL (8-23); BUN/CREATININE RATIO 6 (12-20 (CALC)); CARBON DIOXIDE 21 mmol/l (22-30); CHLORIDE 114 mmol/l (95-108); CREATININE 1.1 mg/dL (0.5-1.0); GFR 50 ML/MIN (>=60 (CALC)); GFR FOR AFR.AMER. > 60 ML/MIN (>=60 (CALC)); MAGNESIUM 1.4 mg/dL (1.6-2.3); POTASSIUM 3.3 mmol/l (3.5-5.1); SGOT/AST 13 u/l (9-36); SODIUM 142 mmol/l (137-146)
[2021-03-22 07:49] VITALS: BP 132/67
[2021-03-22 11:02] VITALS: BP 142/75
[2021-03-22] MEDS ORDERED: ESCITALOPRA5 MG/5 ML PO (12:37)
[2021-03-22] MEDS ORDERED: MIRTAZAPINE15 M1 PO (12:38)
[2021-03-22] MEDS ORDERED: POT CHLORIDE20 ME2 PO (12:39)
[2021-03-22] MEDS ORDERED: MAGNESIUM OXID400 M1 PO (12:41)
[2021-03-22 15:28] VITALS: BP 145/75
[2021-03-22 19:07] VITALS: BP 139/76
== END 2021-03-22 19:40 | disposition home or self-care (01) | DRG 392 ==
LOC: ED 09:52 → ED-I 18:14 → ED 18:47 → MS2 18:47
PROVIDERS: Emergency Medicine; Nurse Practitioner; Nurse Practitioner Family; ADMIT Internal Medicine; ATTEND Hospitalist
PROC: 0DJD8ZZ Inspection of Lower Intestinal Tract, Via Natural or Artificial Opening Endoscopic (ICD-10-PCS; principal; 2021-03-15)
PROC: 0DJ08ZZ Inspection of Upper Intestinal Tract, Via Natural or Artificial Opening Endoscopic (ICD-10-PCS; 2021-03-15)
DX: K29.80 Duodenitis without bleeding (principal); N39.0 Urinary tract infection, site not specified; N17.9 Acute kidney failure, unspecified; I12.9 Hypertensive chronic kidney disease with stage 1 through stage 4 chronic kidney disease, or unspecified chronic kidney disease; E11.22 Type 2 diabetes mellitus with diabetic chronic kidney disease; N18.9 Chronic kidney disease, unspecified; D64.9 Anemia, unspecified; E83.42 Hypomagnesemia; E87.6 Hypokalemia; K44.9 Diaphragmatic hernia without obstruction or gangrene; K80.20 Calculus of gallbladder without cholecystitis without obstruction; N20.0 Calculus of kidney; F32.9 Major depressive disorder, single episode, unspecified; M10.9 Gout, unspecified; E03.9 Hypothyroidism, unspecified; B96.20 Unspecified Escherichia coli [E. coli] as the cause of diseases classified elsewhere; Z89.222 Acquired absence of left upper limb above elbow; Z86.73 Personal history of transient ischemic attack (TIA), and cerebral infarction without residual deficits; Z90.5 Acquired absence of kidney; Z20.822 Contact with and (suspected) exposure to COVID-19
CPT/HCPCS: J0692; J1650; J3475; S0164

== ENCOUNTER 2021-03-25 13:01 | Emergency (ER) | payer MEDICAID ==
[~2021-03-25 13:01] MED LIST changes: +ESCITALOPRA5 MG/5 ML PO; +MAGNESIUM OXID400 M1 PO; +MIRTAZAPINE15 M1 PO; +POT CHLORIDE20 ME2 PO
[2021-03-25 14:14] VITALS: BP 128/92
== END 2021-03-25 15:59 | disposition home or self-care (01) ==
LOC: ED 13:01
DX: S39.011A Strain of muscle, fascia and tendon of abdomen, initial encounter (principal); E11.9 Type 2 diabetes mellitus without complications; I10 Essential (primary) hypertension; M10.9 Gout, unspecified; E03.9 Hypothyroidism, unspecified; N20.0 Calculus of kidney; K80.20 Calculus of gallbladder without cholecystitis without obstruction; Z89.201 Acquired absence of right upper limb, unspecified level; Z87.442 Personal history of urinary calculi; X58.XXXA Exposure to other specified factors, initial encounter

== ENCOUNTER 2021-03-28 08:56 | Observation (INO) | payer MEDICAID ==
[~2021-03-28] VITALS: Ht 162.6 cm; Wt 79.0 kg
--- NOTE | 2021-03-28 08:56 | NUR ---
TO ROOM FOR TRIAGE
--- NOTE | 2021-03-28 09:18 | NUR ---
INCONTINENT OF DIARRHEA, TREASURE GIVEN. STOOL COLLECTED.
[2021-03-28 09:28] LABS: C. DIFFICILE TOXIN A&B NEGATIVE (NEGATIVE)
[2021-03-28 10:00] LABS: HEMATOCRIT 32.1 % (37.0-47.0); HEMOGLOBIN 10.4 g/dl (12.0-16.0); IMMATURE GRANULOCYTES 0.1 % (0.0-5.0); MEAN CELL VOLUME 85.4 fL CALC (80.0-100.0); MEAN CORPUSCULAR HGB 27.7 pG CALC (26.0-32.0); MEAN CORPUSCULAR HGB CONC 32.4 g/dL CAL (32.0-36.0); NEUT# 5.22 thou/uL (2.00-7.15); RED BLOOD COUNT 3.76 mill/uL (4.20-5.60); RED CELL DISTRI WIDTH 18.7 % (11.5-15.5)
[2021-03-28 10:01] LABS: URINE BILIRUBIN - DIPSTICK NEGATIVE (NEGATIVE); URINE BLOOD DIPSTICK MODERATE (NEGATIVE); URINE COLOR YELLOW; URINE GLUCOSE - DIPSTICK NEGATIVE (NEGATIVE); URINE KETONE NEGATIVE (NEGATIVE); URINE PH 6.5 (4.5-8.0); URINE PROTEIN - DIPSTICK NEGATIVE (NEG-TRACE); URINE UROBILINOGEN - DIPSTICK 0.2 E.U./dL (0.2)
[2021-03-28 10:02] LABS: URINE LEUK ESTERASE LARGE (NEGATIVE); URINE NITRITE - DIPSTICK NEGATIVE (Negative)
[2021-03-28 10:03] LABS: URINE BACTERIA MODERATE hpf; URINE EPITHELIAL CELLS MODERATE EPI/hpf (0-FEW); URINE WBC 50-100 WBC/hpf (0-5)
--- NOTE | 2021-03-28 10:15 | NUR ---
PATIENT RESTINGIN BED, AAOX4, RESP EVEN AND UNLAABORED. NO DISTRESS NOTED. PATIENT STATES SHE IS FEELING BETTER. VSS. AWAITING PLAN.
[2021-03-28 10:17] LABS: ALKALINE PHOSPHATASE 91 u/l (38-126); BUN 12 mg/dL (8-23); BUN/CREATININE RATIO 9 (12-20 (CALC)); CARBON DIOXIDE 19 mmol/l (22-30); CHLORIDE 111 mmol/l (95-108); CREATININE 1.4 mg/dL (0.5-1.0); GFR 38 ML/MIN (>=60 (CALC)); GFR FOR AFR.AMER. 46 ML/MIN (>=60 (CALC)); LIPASE 98 u/l (23-300); SGOT/AST 15 u/l (9-36); SODIUM 142 mmol/l (137-146)
[2021-03-28 10:20] LABS: ALBUMIN 3.4 g/dL (3.2-5.0); ANION GAP 15 (6-22 (CALC)); BILIRUBIN, TOTAL 0.5 mg/dL (0.0-1.4); POTASSIUM 2.5 mmol/l (3.5-5.1); TOTAL PROTEIN 7.8 g/dL (6.3-8.2)
--- NOTE | 2021-03-28 11:27 | NUR ---
BED ASSIGNMENTS RECEIVED, ROOMS NOT READY. WILL CALL.
--- NOTE | 2021-03-28 11:50 | NUR ---
REPORT GIVEN TO SHAYLEE
--- NOTE | 2021-03-28 11:58 | NUR ---
PT ARRIVED TO FLOOR VIA STRETCHER ACCOMPAINED BY ER STAFF. PT ALERT AND ORIENTED X3. NO APPARENT DISTRESS NOTED. RESPIRATIONS EVEN AND UNLABORED. PULLMAN CAR CLERK IN PLACE. VSS. IV SITE APPEARS HEALTHY WITH MAG INFUSING. EXCORIATION NOTED TO GROIN AREA. REPOSITIONED WITH PILLOWS. ORIENTED TO ROOM AND CALL LIGHT SYSTEM. LUNCH TRAY ORDERED UPON REQUEST. CALL LIGHT WITHIN REACH. WILL CONTINUE TO MONITOR.
--- NOTE | 2021-03-28 12:02 | NUR ---
PATIENT TRANSPORTED TO [facility]
[2021-03-28 12:19] VITALS: BP 153/83
--- NOTE | 2021-03-28 12:33 | NUR ---
ASSESSMENT DONE. PATIENT IS ALERT AND ORIENT X3. PATIENT DENIES PAIN. TELE IN PLACE. RESPS EVEN AND UNLABORED. HEEL PROTECTORS IN PLACE. PATIENT HAS ULCER IN BUTTOCKS AND PICTURE TAKEN. SETUP PATIENT FOR LUNCH. PATIENT DENIES ANY OTHER NEEDS AT THIS TIME. CALL LIGHT IN REACH.
[2021-03-28 14:39] VITALS: BP 132/84
--- NOTE | 2021-03-28 15:48 | NUR ---
PATIENT IS RESTING IN BED. PARKING LOT SIGNALER HAD DONE MAGALY CARE. PURE WICK IN PLACE. PATIENT DENIES NEEDS AT THIS TIME. CALL LIGHT IN REACH.
[2021-03-28 19:00] VITALS: BP 124/74
--- NOTE | 2021-03-28 19:00 | NUR ---
RECEIVED REPORT FROM NURSE ALEGRE, [facility].
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
--- NOTE | 2021-03-28 23:56 | NUR ---
PATIENT AWAKE AT THIS TIME, STATED IS HUNGRY, SNACK GIVEN, DUE PO VANCOMYCIN GIVEN, DENIES PAIN AT THIS TIME CALL LIGHT AT REACH.
[2021-03-29] VITALS: BP 136/78
--- NOTE | 2021-03-29 04:05 | NUR ---
PATIENT RESTING IN BED, EYES CLOSED, BREATHING EVEN UNLABORED CALL LIGHT AT REACH.
[2021-03-29 04:30] VITALS: BP 130/74
[2021-03-29 06:17] LABS: CREATININE 1.2 mg/dL (0.5-1.0)
[2021-03-29 06:34] LABS: MEAN CELL VOLUME 86.8 fL CALC (80.0-100.0); MEAN CORPUSCULAR HGB CONC 32.3 g/dL CAL (32.0-36.0); RED BLOOD COUNT 2.96 mill/uL (4.20-5.60); RED CELL DISTRI WIDTH 18.9 % (11.5-15.5)
[2021-03-29 06:44] LABS: POTASSIUM 3.1 mmol/l (3.5-5.1)
[2021-03-29 06:46] LABS: HEMATOCRIT 25.7 % (37.0-47.0); HEMOGLOBIN 8.3 g/dl (12.0-16.0)
[2021-03-29 07:56] VITALS: BP 120/73
--- NOTE | 2021-03-29 08:14 | NUR ---
SHIFT CHANGE REPORT, PT AWAKE ALERT AND ORIENTED RESTING IN BED, DENIES PAIN/ DISCOMFORT AT THIS TIME, IVF INFUSING, PUREWICK CATHETER IN PLACE WITH YELLOW CLOUDY URINE, CALL VILLA IN REACH AND BED LOCKED IN LOWEST POSITION.
[2021-03-29 10:30] VITALS: BP 110/66
--- NOTE | 2021-03-29 12:00 | NUR ---
ASSISTED WITH SETUP FOR MEAL, NEEDS ANTICIPATED AND ADDRESSED.
--- NOTE | 2021-03-29 16:00 | NUR ---
REQUESTING ASSIST WITH MAGALY-CARE, TOTAL BED BATH ADMINISTERED, BACK RUB GIVEN, REPOSITIONED FOR COMFORT, CALL VILLA IN REACH.
[2021-03-29 19:06] VITALS: BP 115/66
--- NOTE | 2021-03-29 19:15 | NUR ---
REPORT RECEIVED FROM Aiyana SLOAN
--- NOTE | 2021-03-29 21:41 | NUR ---
PATIENT RESTING COMFORTABLY IN BED, PHYSICAL ASSESMENT COMPLETED AT THIS TIME. LEFT SIDE BELOW THE ELBOW AMPUTEE #20 IN RIGHT AC INFUSING PER EMAR ORDERS, CLEAR LUNG SOUNDS BILATERALLY, REGULAR HEART SOUNDS, ACTIVE BOWEL SOUNDS. LAST REPORTED BOWEL MOVEMENT 03/29/21 LAST TELEMETRY READING SR60. PATIENT HAS REDNESS IN GROIN AND SMALL RED SORE ON RIGHT GLUTE. CARE PLAN REVIEWED, SAFETY PRECAUTIONS REINFORCED.PATIENT MEDICATED PER EMAR AT THIS TIME.
[2021-03-30] VITALS: BP 122/71
--- NOTE | 2021-03-30 00:40 | NUR ---
PATIENT RESTING COMFORTABLY. DENIES ANY NEEDS AT THIS TIME. CALL LIGHT AND BEDSIDE TABLE WITHIN REACH.
[2021-03-30 05:10] VITALS: BP 108/65
--- NOTE | 2021-03-30 05:30 | NUR ---
PATIENT RESTING COMFORTABLY, DENIES ANY NEEDS AT THIS TIME. BEDSIDE TBALE AND CALL LIGHT WITHIN REACH.
[2021-03-30 06:17] LABS: HEMATOCRIT 25.1 % (37.0-47.0); HEMOGLOBIN 8.2 g/dl (12.0-16.0); MEAN CELL VOLUME 86.6 fL CALC (80.0-100.0); MEAN CORPUSCULAR HGB 28.3 pG CALC (26.0-32.0); MEAN CORPUSCULAR HGB CONC 32.7 g/dL CAL (32.0-36.0); RED BLOOD COUNT 2.9 mill/uL (4.20-5.60)
[2021-03-30 06:24] LABS: CREATININE 1.4 mg/dL (0.5-1.0); POTASSIUM 3.2 mmol/l (3.5-5.1)
[2021-03-30 06:30] LABS: MAGNESIUM 1.9 mg/dL (1.6-2.3)
[2021-03-30 07:24] VITALS: BP 128/74
--- NOTE | 2021-03-30 07:24 | NUR ---
PT IN BED WHEN ENTERED ROOM. ALERT AND ORIENTED. ASSESSSMENT AND VITALS COMPLETED. S1 AND S2 HEARD UPON ASCULTATION. BOWEL SOUNDS ACTIVE IN ALL 4 QUADRANTS. IV FOUND DISLODGED. ARM PUFFY AROUND IV SITE. SKIN WARM AND DRY. PEDAL PULSES STRONG. PT STATED NO PAIN AT THIS TIME. NO DISTRESS NOTED. CALL LIGHT WITHIN REACH.
--- NOTE | 2021-03-30 09:24 | NUR ---
CALLED DR. FERNANDEZ OFFICE REGARDING CONSULTATION ON THIS PT. TALKED TO JANIE AT THE OFFICE AND SHE STATED HE WILL BE HERE LATER THIS EVENING FOR SURGERY SO HE WILL SEE HER THEN.
[2021-03-30 11:19] VITALS: BP 122/60
--- NOTE | 2021-03-30 12:00 | NUR ---
PT IN BED. NO DISTRESS NOTED. CALL LIGHT WITHIN REACH.
[2021-03-30 15:19] VITALS: BP 99/58
--- NOTE | 2021-03-30 16:00 | NUR ---
PT IN BED. NO DISTRESS NOTED. CALL LIGHT WITHIN REACH.
--- NOTE | 2021-03-30 19:05 | NUR ---
REPORT RECEIVED FROM Carlos Enrique APARICIO RN
[2021-03-30 19:43] VITALS: BP 123/72
--- NOTE | 2021-03-30 20:36 | NUR ---
PATIENT RESTING COMFORTABLY IN BED, PHYSICAL ASSESMENT COMPLETED AT THIS TIME LEFT SIDE BELOW THE ELBOW AMPUTEE CLEAR LUNG SOUNDS BILATERALLY, REGULAR HEART SOUNDS, ACTIVE BOWEL SOUNDS. REPORTED BOWEL MOVEMENT 03/29/21 LAST TELEMETRY READING SR60. PATIENT HAS REDNESS IN GROIN AND SMALL RED SORE ON RIGHT GLUTE. CARE PLAN REVIEWED, SAFETY PRECAUTIONS REINFORCED.PATIENT MEDICATED PER EMAR AT THIS TIME.
--- NOTE | 2021-03-30 23:50 | NUR ---
PATIENT RESTING COMFORTABLY. MEDICATED PER EMAR. CALL LIGHT AND BEDSIDE TABLE WITHIN REACH
[2021-03-31 00:19] VITALS: BP 95/54
[2021-03-31 05:01] VITALS: BP 115/68
[2021-03-31 06:22] LABS: HEMATOCRIT 25.3 % (37.0-47.0); HEMOGLOBIN 8.1 g/dl (12.0-16.0); MEAN CELL VOLUME 86.6 fL CALC (80.0-100.0); MEAN CORPUSCULAR HGB 27.7 pG CALC (26.0-32.0); RED BLOOD COUNT 2.92 mill/uL (4.20-5.60); RED CELL DISTRI WIDTH 19.3 % (11.5-15.5)
[2021-03-31 06:41] LABS: CREATININE 1.3 mg/dL (0.5-1.0); MAGNESIUM 1.6 mg/dL (1.6-2.3); POTASSIUM 3.7 mmol/l (3.5-5.1)
--- NOTE | 2021-03-31 07:00 | NUR ---
RECIEVED REPORT FROM MÓNICA RICHARDSON
[2021-03-31 07:48] VITALS: BP 127/68
--- NOTE | 2021-03-31 07:48 | NUR ---
PT RESTING IN SEMI FOWLERS POSITION. PT IS A/O X3. ASSESSMENT AND VITALS COMPLETED. RESPIRATIONS ARE EVEN AND UNLABORED WITH NO DISTRESS NOTED, O2 100% ROOM AIR. LUNG SOUNDS ARE CLEAR. HEART RHYTHM NORMAL WITH TELE IN PLACE. BOWEL SOUNDS ARE ACTIVE. PULSES STRONG, HEEL PROTECTORS APPLIED. NO IV PRESENT, MD AWARE. SKIN SHEAR TO RIGHT BUTTOCKS NOTED. LEFT ARM AMUPUTATION NOTED. PT DENIES OF ANY PAINS OR DISCOMFORTS AT THIS TIME. ALL SAFETY PRECAUTIONS ARE IN PLACE WITH CALL LIGHT IN REACH. CONTACT PLUS PRECAUTIONS IN PLACE. WILL CONTINUE TO MONITOR.
--- NOTE | 2021-03-31 08:33 | NUR ---
PRELIM BLOOD CX SHOWS GRAM POSITIVE COCCI IN 1 VIAL. REPORTED TO KATARZYNA, NO NEW ORDERS. WILL F/U WITH FINAL RESULTS
[2021-03-31 10:45] VITALS: BP 101/63
--- NOTE | 2021-03-31 10:57 | NUR ---
LILLIAN NOTIFIED OF SURGERY SCHEDULED TOMORROW.
--- NOTE | 2021-03-31 11:15 | NUR ---
DR FITZGERALD AND Sarah SHARMA,ANRP AT BEDSIDE. M
--- NOTE | 2021-03-31 12:26 | NUR ---
PT RESTING IN TEDDY FOWLERS POSITION WATCHING TV. RESPIRATIONS ARE EVEN AND UNLABORED WITH NO DISTRESS NOTED. TELE MONITORING IN PLACE. PT DENIES OF ANY PAINS OR DISCOMFORTS AT THIS TIME. ALL SAFETY PRECAUTIONS ARE IN PLACE WITH CALL LIGHT IN REACH. WILL CONTINUE TO MONTIOR.
--- NOTE | 2021-03-31 15:15 | NUR ---
PT RESTING IN SEMI FOWLERS POSITION. RESPIRATIONS ARE EVEN AND UNLABORED ON ROOM AIR. TELE MONITORING IN PLACE. PUREHWICK IN PLACE, CONT SUCTION. PT DENIES OF ANY PAINS OR DISCOMFORTS AT TYHIS TIME. ALL SAFETY PRECAUTIONS ARE IN PLACE WITH CALL LIGHT IN REACH. WILL CONTINUE TO MONITOR.
[2021-03-31 16:20] VITALS: BP 113/64
[2021-03-31 19:00] VITALS: BP 122/63
[2021-04-01 00:28] VITALS: BP 137/62
[2021-04-01 04:46] VITALS: BP 132/68
--- NOTE | 2021-04-01 05:43 | NUR ---
03/31/21 2100 PATIENT RESTING QUIETLY IN BED. ASSESSMENT COMPLETE. DENIES PAIN AT THIS TIME. CALL LIGHT WITHIN REACH.
--- NOTE | 2021-04-01 07:00 | NUR ---
RECIEVED REPORT FROM Rishi WEISS RN
[2021-04-01 07:08] LABS: HEMATOCRIT 27.4 % (37.0-47.0); HEMOGLOBIN 8.8 g/dl (12.0-16.0); MEAN CORPUSCULAR HGB 27.9 pG CALC (26.0-32.0); MEAN CORPUSCULAR HGB CONC 32.1 g/dL CAL (32.0-36.0); RED BLOOD COUNT 3.15 mill/uL (4.20-5.60); RED CELL DISTRI WIDTH 19.5 % (11.5-15.5)
[2021-04-01 07:16] LABS: CREATININE 1.3 mg/dL (0.5-1.0); MAGNESIUM 1.4 mg/dL (1.6-2.3); POTASSIUM 3.1 mmol/l (3.5-5.1)
--- NOTE | 2021-04-01 07:38 | NUR ---
PT note 03/31/21 Patient is seen for bed mobility and transfer training. We worked on supine to sit and repeated sit to stand. She initially stood well, demonstrating static standing balance for 1 min with min assist. She fatigued quickly. The Am Pac score is 10 and indicates she would do well to return to SNF for rehab
[2021-04-01 07:48] VITALS: BP 124/74
--- NOTE | 2021-04-01 07:48 | NUR ---
PT RESTING IN SEMI FOWLERS POSITION. PT IS A/OX3.ASSESSMENT AND VITALS COMPLETED. RESPIRATIONS ARE EVEN AND UNLABORED WITH NO DISTRESS NOTED.LUNG SOUNDS ARE CLEAR. BOWEL SOUNDS ARE CLEAR. HEART RHYTHM NORMAL WITH TELE IN PLACE. BOWEL SOUNDS ARE ACTIVE, SMALL BM NOTED THIS AM. PULSES STRONG.LEFT ARM AMPUATION. NO IV, MD AWARE. SKIN TEAR TO RIGHT BUTTOCKS NOTED, NEW DRESSING TO BE APPLIED. PUREWHICK IN PLACE, TUBING PATENT. PT DENIES OF ANY PAINS OR DISCOMFORTS AT THIS TIME.ALL SAFETY PRECAUTIONS ARE IN PLACE WITH CALL LIGHT IN REACH. WILL CONTINUE TO MONITOR.
--- NOTE | 2021-04-01 09:38 | NUR ---
PHYSCIAL THERAPY AT BEDSIDE
[2021-04-01 10:55] VITALS: BP 128/76
--- NOTE | 2021-04-01 11:30 | NUR ---
DR MANRIQUEZ AT BEDSIDE
--- NOTE | 2021-04-01 12:23 | NUR ---
PT RESTING IN SEMI FOWLERS POSITION. RESPIRATIONS REMAINS EVEN AND UNLABORED ON ROOM AIR. PURE WHICK IN PLACE, TUBING PATENT. TELE MONITORING IN PLACE.PHOTOS OBTAINED OF RIGHT SKIN TEAR OF RIGHT BUTTOCKS. NO DRESSING APPLIED. SCHEDULED MEDICATIONS ADMINISTERED. PT TOLERATED WELL. PT DNEIES OF ANY NEEDS AT THIS TIME. ALL SAFETY PRECAUTIONS ARE IN PLACE WITH CALL LIGHT IN REACH.WILL CONTINUE TO MONITOR.
[2021-04-01 15:06] VITALS: BP 126/73
--- NOTE | 2021-04-01 16:10 | NUR ---
PT RESTING IN SEMI FOWLERS POSITION WATCHING TV.REPIRATIONS ARE EVEN AND UNLABORED WITH NO DISTRESS NOTED ON ROOM AIR. TELE MONITORING IN PLACE. PUREWHICK IN PLACE. CONT SUCTION. PT DENIES OF ANY PAINS OR DISCOMFORTS AT THIS TIME.ALL SAFETY PRECAUTIONS ARE IN PLACE WITH CALLLIGHT IN REACH. WILL CONTINUE TO MONITOR
--- NOTE | 2021-04-01 16:28 | NUR ---
ATTEMPTED TO APPLY DRESSING TO RIGHT BUTTOCKS WITH ASSISTANCE FROM SLEEPING BAG FILLER. PT REFUSED.
[2021-04-01 18:43] VITALS: BP 125/68
--- NOTE | 2021-04-01 19:21 | NUR ---
SBAR REPORT RECEIVED FROM BRYANT FIELD MECHANIC/SITE LEAD. PATIENT RESTING QUIETLY IN BED WATCHING TV. DENIES PAIN AT THIS TIME. NO DISTRESS NOTED. CALL LIGHT WITHIN REACH.
[2021-04-02 00:10] VITALS: BP 126/78
[2021-04-02 04:02] VITALS: BP 134/67
[2021-04-02 05:47] LABS: HEMATOCRIT 26.8 % (37.0-47.0); HEMOGLOBIN 8.6 g/dl (12.0-16.0); MEAN CELL VOLUME 87.6 fL CALC (80.0-100.0); MEAN CORPUSCULAR HGB 28.1 pG CALC (26.0-32.0); MEAN CORPUSCULAR HGB CONC 32.1 g/dL CAL (32.0-36.0); RED BLOOD COUNT 3.06 mill/uL (4.20-5.60); RED CELL DISTRI WIDTH 19.5 % (11.5-15.5)
[2021-04-02 06:04] LABS: CREATININE 1.2 mg/dL (0.5-1.0); MAGNESIUM 1.4 mg/dL (1.6-2.3); POTASSIUM 2.9 mmol/l (3.5-5.1)
--- NOTE | 2021-04-02 08:00 | NUR ---
PT SLEEP UPON ENTERING ROOM. VITALS AND ASSESSMENT COMPLETED. S1 AND S2 NOTED. LUNGS SOUNDS CLEAR. BOWEL SOUNDS ACTIVE IN 4 QUADRANTS. SKIN WARM AND DRY. PEDAL PULSES STRONG. PT HAS SMALL TEAR ON BOTTOM. PT DOESNT HAVE AN IV. PUREWICK ON TO SUCTION. LEFT ARM AMPUTEE. PT DENIES PAIN AT THIS TIME. CALL LIGHT WITHIN REACH.
[2021-04-02 08:02] VITALS: BP 130/74
[2021-04-02 10:30] VITALS: BP 121/64
--- NOTE | 2021-04-02 12:00 | NUR ---
PT IN BED. NO DISTRESS NOTED. PT DECLINED TO USE PUREWICK BECAUSE SHE IS UNCOMFORTABLE. CALL LIGHT WITHIN REACH.
--- NOTE | 2021-04-02 13:01 | NUR ---
Spoke to nurse practioner Dinh regarding final blood cultures results. No new medications order at this time.
[2021-04-02 15:34] VITALS: BP 135/66
--- NOTE | 2021-04-02 16:00 | NUR ---
PT MOVED FROM ROOM 277 TO 272. PT IS IN NO PAIN AT THIS TIME. RESTING COMFORTABLY. CALL LIGHT WITHIN REACH.
[2021-04-02 18:54] VITALS: BP 102/58
--- NOTE | 2021-04-02 23:43 | NUR ---
04/02/211924 RESTING QUIETLY IN BED. NO DISTRESS NOTED. DENIES PAIN. CALL LIGHT WITHIN REACH.
[2021-04-03] VITALS: BP 102/62
[2021-04-03 04:00] VITALS: BP 105/59
--- NOTE | 2021-04-03 04:50 | NUR ---
RESTING QUIETLY IN BED, EYES CLOSED. BED IN LOW POSITION. CALL LIGHT WITHIN REACH.
--- NOTE | 2021-04-03 07:00 | NUR ---
PT REPORT RECEIVED FROM NIGHT NURSEMESFIN
[2021-04-03 08:00] VITALS: BP 140/69
--- NOTE | 2021-04-03 08:00 | NUR ---
PT WAS FOUND RESTING IN BED IN SEMI-FOWLERS POSITION;PT IS A&OX3;VS AND ASSESSMENT WERE COMPLETED;PT HAS NO REPORTS OF PAIN AT THIS TIME;HEART SOUNDS ARE REGULAR IN RATE AND RHYTHM;TELE IS IN PLACE;LUNG SOUNDS ARE CLEAR;RESPIRATIONS ARE EVEN AND UNLABORED ON RA;ABDOMEN IS SOFT WITH ACTIVE BOWEL SOUNDS IN ALL QUADRANTS;PT HAS SKIN TEARS PRESENT ON RT AND LEFT BUTTOCKS;DRESSING IN CDI;PULSES ARE STRONG IN ALL EXTREMETIES;PT HAS A LEFT BELOW THE ELBOW AMPUTATION;SAFETY PRECAUTIONS IN PLACE;CALL LIGHT WITHIN REACH;PT ENCOURAGED TO CALL WITH ANY NEEDS OR CONCERNS;BED IN LOWEST POSITION;WILL CONTINUE TO MONITOR.
--- NOTE | 2021-04-03 10:30 | NUR ---
AND STAR NAJERA AT BEDSIDE DISCUSSING POC WITH PT
[2021-04-03 10:50] VITALS: BP 145/67
--- NOTE | 2021-04-03 12:00 | NUR ---
PT WAS FOUND RESTING IN BED;PT WAS CLEANED UP OF STOOL AND URINE;TELE IS IN PLACE;SAFETY PRECAUTIONS IN PLACE;CALL LIGHT WITHIN REACH;WILL CONTINUE TO MONITOR.
[2021-04-03 15:49] VITALS: BP 132/65
--- NOTE | 2021-04-03 16:00 | NUR ---
PT WAS FOUND RESTING IN BED WATCHING TV;PT HAS NO NEEDS OR COMPLAINTS OF PAIN AT THIS TIME;SAFETY PRECAUTIONS IN PLACE;CALL LIGHT WITHIN REACH;WILL CONTINUE TO MONITOR.
[2021-04-03 19:00] VITALS: BP 116/55
--- NOTE | 2021-04-03 20:00 | NUR ---
PATIENT RESTING IN BED AT THIS TIME-AWAKE ALERT AND ORIENTEDX3. PATIENT WITH NO COMPLAINTS AT THIS TIME. PATIENT IS ON CONTACT PLUS ISOLATION FOR C-DIFF. PATIENT WITH BREIF IN PLACE FOR BOWEL AND BLADDER INCONT. TELE MONITOR IN PLACE WITH LAST READING SR-79. SAFETY PRECAUTIONS REINFORCED. CALL LIGHT IN REACH. WILL CONT TO MONITOR.
[2021-04-04] VITALS: BP 98/50
--- NOTE | 2021-04-04 | NUR ---
PATIENT RESTING IN BED AT THIS TIME WITH SHEET OVER HER HEAD. RESPS ARE EVEN AND UNLABORED. CALL LIGHT IN REACH. WILL CONT TO MONITOR.
[2021-04-04 04:00] VITALS: BP 113/61
--- NOTE | 2021-04-04 06:10 | NUR ---
PATIENT RESTING IN BED-AWAKE WITH NO COMPLAINTS. MEDICATED ORDERED. TELE MONITOR IN PLACE. SAFETY PRECAUTIONS REINFORCED. CALL LIGHT IN REACH. WILL CONT TO MONITOR.
[2021-04-04 06:15] LABS: HEMATOCRIT 25.5 % (37.0-47.0); HEMOGLOBIN 8.3 g/dl (12.0-16.0); MEAN CELL VOLUME 86.7 fL CALC (80.0-100.0); MEAN CORPUSCULAR HGB 28.2 pG CALC (26.0-32.0); MEAN CORPUSCULAR HGB CONC 32.5 g/dL CAL (32.0-36.0); RED BLOOD COUNT 2.94 mill/uL (4.20-5.60); RED CELL DISTRI WIDTH 18.9 % (11.5-15.5)
[2021-04-04 06:29] LABS: ALKALINE PHOSPHATASE 74 u/l (38-126); ANION GAP 11 (6-22 (CALC)); BUN 8 mg/dL (8-23); BUN/CREATININE RATIO 7 (12-20 (CALC)); CARBON DIOXIDE 16 mmol/l (22-30); CHLORIDE 117 mmol/l (95-108); CREATININE 1.3 mg/dL (0.5-1.0); GFR 41 ML/MIN (>=60 (CALC)); GFR FOR AFR.AMER. 50 ML/MIN (>=60 (CALC)); POTASSIUM 2.7 mmol/l (3.5-5.1); SGOT/AST 10 u/l (9-36); SODIUM 141 mmol/l (137-146)
[2021-04-04 06:31] LABS: ALBUMIN 2.4 g/dL (3.2-5.0); BILIRUBIN, TOTAL 0.2 mg/dL (0.0-1.4); TOTAL PROTEIN 5.8 g/dL (6.3-8.2)
[2021-04-04 08:00] VITALS: BP 136/71
--- NOTE | 2021-04-04 10:27 | NUR ---
PT SEEN AT REST IN THE BED, ALERT AND ORIENTED X 3. LUNGS CLEAR, RA. PT ON CONTACT PLUS ISOLATION FOR CDIF. NAD.
[2021-04-04 10:43] VITALS: BP 117/65
--- NOTE | 2021-04-04 13:53 | NUR ---
PT CONTINUES AT REST IN THE BED, NO DISTRESS. PT WITH ORANGE JUICE WITH POTASSIUM AT BEDSIDE, PROMISES TO TAKE THEM.
[2021-04-04 16:00] VITALS: BP 146/63
--- NOTE | 2021-04-04 18:31 | NUR ---
PT CONTINUES AT REST IN THE BED, NO DISTRESS.
[2021-04-04 18:55] VITALS: BP 119/59
--- NOTE | 2021-04-04 19:20 | NUR ---
PATIENT ALERT AND ORIENTED. ABLE TO MAKE NEEDS KNOWN. NO COMPLAINTS OF PAIN OR DISCOMFORT NOTED AT THIS TIME. PATIENT HAD INCONTINENT EPISODE OF URINE. MAGALY CARE DONE WITH NEW BRIEF APPLIED. ASSESSMENT DONE AT THIS TIME. BED IN LOWEST POSITION. CALL LIGHT AND BELONGINGS WITHIN REACH.
--- NOTE | 2021-04-04 22:15 | NUR ---
PATIENT RESTING IN BED WITH EYES CLOSED. NO SIGNS OF PAIN OR DISTRESS NOTED. BED REMAINS IN LOWEST POSITION.CALL LIGHT WITHIN REACH.
[2021-04-05] VITALS: BP 106/54
--- NOTE | 2021-04-05 00:20 | NUR ---
PATIENT RECEIVED PO VANCO PER ORDERS. TOLERATED WELL. ADL CARE PROVIDED. PATIENT HAD EPISODE OF URINE INCONTINENCE.
[2021-04-05 04:00] VITALS: BP 119/61
--- NOTE | 2021-04-05 07:00 | NUR ---
RECIEVED REPORT FROM MÓNICA GODFREY
[2021-04-05 09:27] VITALS: BP 110/64
--- NOTE | 2021-04-05 09:27 | NUR ---
PT RESTING IN SEMI FOWLERS POSITION. PT IS A/O X3. ASSESSMENT AND VITALS COMPLETED. RESPIRATIONS ARE EVEN AND UNLABORED WITH NO DISTRESS NOTED ON ROOM AIR. LUNG SOUNDS ARE CLEAR. HEART RHYTHM NORMAL WITH TELE IN PLACE, SR PER ER MONITORING. BOWEL SOUNDS ARE ACTIVE. NO IV, MD AWARE. LEFT ARM AMPUTE. SKIN TEAR TO RIGHT BUTTOCKS, OPEN TO AIR. Q2H TURNING. PT DENIES OF ANY PAINS OR DISCOMFORTS AT THIS TIME. ALL SAFETY PRECAUTIONS ARE IN PLACE WITH CALL LIGHT IN REACH. CONTACT PLUS PRECAUTIONS. WILL CONTINUE TO MONITOR.
[2021-04-05 09:38] LABS: HEMOGLOBIN 9.3 g/dl (12.0-16.0); IMMATURE GRANULOCYTES 0.2 % (0.0-5.0); MEAN CELL VOLUME 88.7 fL CALC (80.0-100.0); MEAN CORPUSCULAR HGB 28.4 pG CALC (26.0-32.0); MEAN CORPUSCULAR HGB CONC 32.1 g/dL CAL (32.0-36.0); NEUT# 2.75 thou/uL (2.00-7.15); RED BLOOD COUNT 3.27 mill/uL (4.20-5.60); RED CELL DISTRI WIDTH 19.6 % (11.5-15.5)
[2021-04-05 09:58] LABS: CREATININE 1.2 mg/dL (0.5-1.0); MAGNESIUM 1.4 mg/dL (1.6-2.3)
[2021-04-05 10:25] LABS: POTASSIUM 3.4 mmol/l (3.5-5.1)
[2021-04-05 10:51] VITALS: BP 108/62
--- NOTE | 2021-04-05 11:57 | NUR ---
PT RESTING IN SEMI FOWLERS POSITION. REPSIRATIONS ARE EVEN AND UNLABORED WITH NO DISRTESS NOTED. TELE MONITORING IN PLACE. VANCO PO ADMINISTERED. PT DENIES OF ANY PAINS OR DISCOMFORTS AT THIS TIME. ALL SAFETY PRECAUTIONS ARE IN PLACE WITH CALL LIGHT IN ERACH. WILL CONTINUE TO MONITOR.
--- NOTE | 2021-04-05 14:38 | NUR ---
COVID SWAB CLLECTED. PT TOLERATED WELL. SENT TO LAB.
[2021-04-05 14:45] VITALS: BP 131/63
--- NOTE | 2021-04-05 15:46 | NUR ---
PT EDUCATED ON DC INSTRUCTIONS. PT VERBLAIZED UNDERSTANDING. [facility] ETA [id number]. RESPIRATIONS REMAINS EVEN AND UNLABORED WITH NO DISTRESS. PT DENIES OF ANY NEEDS. TELE MONITORING REMOVED, ER NOTIFIED. ALL SAFETY PRECAUTIONS ARE IN PLACE WITH CALL LIGHT IN REACH. WILL CONTINUE TO MONITOR.
--- NOTE | 2021-04-05 16:35 | NUR ---
Discharge instructions given. Patient verbalizes understanding of same. Discharged in stable condition via [facility] with staff. All belongings sent with pt. PT DC TO [facility]IA [facility] IN STABLE CONDITION WITH ALL DC INSTRUCTIONS AND PERSONAL BELONGINGS.
--- NOTE | 2021-04-05 16:55 | NUR ---
ATTEMPTED TO CALL FOR REPORT TO [facility] MULTIPLE TIMES. PHONE #[phone]. PHONE NUMBER CONFIRMED WITH VERENA GAMING CM.
== END 2021-04-05 16:36 ==
LOC: ED 08:56 → ED-I 09:27 → ED 10:49 → MS2 10:50
PROVIDERS: Family Medicine; Nurse Practitioner; Nurse Practitioner Family; ADMIT Hospitalist; ATTEND Hospitalist
DX: A04.72 Enterocolitis due to Clostridium difficile, not specified as recurrent (principal); E87.6 Hypokalemia; N39.0 Urinary tract infection, site not specified; N17.9 Acute kidney failure, unspecified; I10 Essential (primary) hypertension; E11.22 Type 2 diabetes mellitus with diabetic chronic kidney disease; N18.4 Chronic kidney disease, stage 4 (severe); N20.0 Calculus of kidney; E03.9 Hypothyroidism, unspecified; E83.42 Hypomagnesemia; D64.9 Anemia, unspecified; F32.9 Major depressive disorder, single episode, unspecified; M10.9 Gout, unspecified; B96.20 Unspecified Escherichia coli [E. coli] as the cause of diseases classified elsewhere; Z86.73 Personal history of transient ischemic attack (TIA), and cerebral infarction without residual deficits; Z87.442 Personal history of urinary calculi; Z89.202 Acquired absence of left upper limb, unspecified level; Z90.5 Acquired absence of kidney; Z20.822 Contact with and (suspected) exposure to COVID-19
CPT/HCPCS: G0378; J3475

== ENCOUNTER 2023-06-30 10:32 | Emergency (ER) | payer MEDICARE, MEDICAID ==
[~2023-06-30] VITALS: Ht 162.6 cm; Wt 100.7 kg
[~2023-06-30 10:32] MED LIST changes: +GABAPENTIN100 MG PO; +LOKELMA10 GM PO
[2023-06-30 12:18] LABS: BASO% 0.3 % (0-3); EOS% 6.7 % (0-8); HEMATOCRIT 39.8 % (37.0-47.0); HEMOGLOBIN 12.2 g/dl (12.0-16.0); IMMATURE GRANULOCYTES 0.4 % (0.0-5.0); LYMPH% 29.8 % (15-41); MEAN CELL VOLUME 91.1 fL CALC (80.0-100.0); MEAN CORPUSCULAR HGB 27.9 pG CALC (26.0-32.0); MEAN CORPUSCULAR HGB CONC 30.7 g/dL CAL (32.0-36.0); MONO% 7.4 % (2-13); NEUT% 55.4 % (42-76); RED BLOOD COUNT 4.37 mill/uL (4.20-5.60); RED CELL DISTRI WIDTH 15.1 % (11.5-15.5)
[2023-06-30 13:40] LABS: BILIRUBIN, TOTAL 0.4 mg/dL (0.02-1.3); CREATININE 2.3 mg/dL (0.5-1.0)
[2023-06-30 13:45] LABS: ALBUMIN 4.1 g/dL (3.2-5.0); TOTAL PROTEIN 8.3 g/dL (6.3-8.2)
[2023-06-30 13:47] LABS: POTASSIUM 6.4 mmol/l (3.5-5.1)
[2023-06-30 16:10] LABS: BILIRUBIN, TOTAL 0.3 mg/dL (0.02-1.3); CREATININE 2.5 mg/dL (0.5-1.0); POTASSIUM 5.7 mmol/l (3.5-5.1); TOTAL PROTEIN 8.4 g/dL (6.3-8.2)
[2023-06-30 16:49] LABS: URINE BILIRUBIN - DIPSTICK Negative (NEGATIVE); URINE BLOOD DIPSTICK Large (NEGATIVE); URINE GLUCOSE - DIPSTICK Negative (NEGATIVE); URINE KETONE Negative (NEGATIVE); URINE NITRITE - DIPSTICK Negative (Negative); URINE PROTEIN - DIPSTICK 100 mg/dL (NEG-TRACE); URINE UROBILINOGEN - DIPSTICK 0.2 E.U./dL (0.2)
[2023-06-30 16:50] LABS: URINE COLOR Yellow; URINE LEUK ESTERASE Moderate (NEGATIVE)
[2023-06-30 16:55] LABS: URINE BACTERIA FEW hpf; URINE RBC 50-100 RBC/hpf (0-5); URINE SQUAMOUS EPITHELIAL CELL FEW EPI/hpf (0-FEW); URINE WBC 20-50 WBC/hpf (0-5)
[2023-06-30 19:30] VITALS: BP 119/58
[2023-06-30 20:01] VITALS: BP 110/62
== END 2023-06-30 18:17 | disposition short-term general hospital (02) ==
LOC: ED 10:32
PROVIDERS: Emergency Medicine
DX: N20.0 Calculus of kidney (principal); E87.5 Hyperkalemia; E11.9 Type 2 diabetes mellitus without complications; Z90.5 Acquired absence of kidney; Z89.202 Acquired absence of left upper limb, unspecified level; Z87.442 Personal history of urinary calculi